=== PATIENT | female | born 1995 | race Caucasian/White ===

== ENCOUNTER 2016-04-20 16:26 | Emergency (ER) | payer OTHER ==
[~2016-04-20] VITALS: Ht 152.4 cm; Wt 67.0 kg
[2016-04-20 16:38] VITALS: TEMP 36.8; Ht 152.4 cm; Wt 67.0 kg
[2016-04-20] MEDS ORDERED: INSDGI SC ×2 (17:33)
[2016-04-20] MEDS ORDERED: NAPR1TAB9 PO (17:33)
[2016-04-20] MEDS ORDERED: NVLG SQ ×2 (17:33)
[2016-04-20] MEDS ORDERED: ZCR40 PO (17:33)
[2016-04-20] MEDS ORDERED: OPTIRAY 320 IV PRN (18:00)
--- NOTE | 2016-04-20 18:21 | DIAGNOSTIC IMAGING REPORT ---
SOFT TISSUE NECK CT WITH CONTRAST HISTORY: swollen tonsil, difficulty swallowing TECHNIQUE: Multiaxial CT images of the neck were performed following the use of intravenous contrast. COMPARISON STUDY: None. FINDINGS: The visualized brain parenchyma and orbits are unremarkable. The major salivary glands enhance symmetrically. Prevertebral soft tissues and the epiglottis are normal in thickness. The thyroid gland enhances normally. The major cervical vessels are patent. The visualized lungs are clear. No suspicious lytic or blastic osseous lesions. Paranasal sinuses and mastoid air cells are clear. No masses. No loculated fluid collections to suggest an abscess. There are enlarged and enhancing adenoid tonsils and palatine tonsils. There is associated mild upper cervical lymphadenopathy. Dominant right cervical lymph node measures 1.6 cm. There is also an enlarged right lateral pharyngeal lymph node measuring 1 cm. IMPRESSION: 1. Enlarged and enhancing adenoid and palatine tonsils. This is consistent with a tonsillitis. No evidence for a peritonsillar abscess. 2. Mild cervical lymphadenopathy. This is likely reactive. Electronically signed by: Lavell Matthews M.D. 04/20/2016 6:19 PM Dictated Date/Time: 04/20/2016 6:15 PM
--- NOTE | 2016-04-20 18:44 | DIAGNOSTIC IMAGING REPORT ---
CHEST 2 VIEWS ROUTINE HISTORY: cough, fever COMPARISON: None. FINDINGS: The lungs are clear. Cardiac silhouette is normal in size. No pleural effusions. No pneumothorax. IMPRESSION: No acute process. Electronically signed by: Lavell Matthews M.D. 04/20/2016 6:43 PM Dictated Date/Time: 04/20/2016 6:41 PM
[2016-04-20 19:17] LABS: URINE APPEARANCE CLEAR (CLEAR); URINE BILIRUBIN NEG (NEG); URINE COLOR YELLOW; URINE NITRITE NEG (NEG); URINE SPECIFIC GRAVITY > 1.045 (1.000-1.030); UROBILINOGEN NEG (NEG)
[2016-04-20 19:27] LABS: MANUAL MICROSCOPIC REQUIRED? NO; REVIEW REQ? NO
[2016-04-20] MEDS ORDERED: KETOROLAC TROMETHAMINE 30 MG/ML VIAL IV STA (20:02)
[2016-04-20] MEDS ORDERED: SODIUM CHLORIDE 0.9% 1000ML 1,000 ML IV ONE (20:15)
[2016-04-20] MEDS ORDERED: AMOXICILLIN 500 MG/10 ML UDP PO ONE (20:15)
[2016-04-20 21:01] VITALS: BP 138/80; PULSE 101; O2SAT 96
[2016-04-20] MEDS ORDERED: AMXUD2505 PO (21:18)
--- NOTE | 2016-04-21 22:13 | EMERGENCY ROOM VISIT NOTE ---
ED Visit Note First contact with patient: 16:43 Chief Complaint: Sore throat, pneumonia and hyperglycemia. History of Present Illness: Ms. Langford is a 20-year-old white female who ambulates into the ED with complaints of throat pain. Just prior to coming to the emergency department she was seen at [facility] and was diagnosed with pneumonia and hyperglycemia. Additionally she reports a rapid strep screen was performed and was negative and the culture is pending. Laboratory tests were drawn and she had a white blood cell count of 24.1 with 90 % segs but no bandemia or left shift. Her H&H was 4.44 and 13.4 respectively. Her comprehensive medical profile showed normal-appearing electrolytes, glucose was measured at 451 and her outlet phosphatase was elevated. It was also verbally reported that she had an elevated anion gap but that was not found on her testing. Patient reports that she has a 2 day history of throat pain and bilateral ear pressure, productive cough and a decreased appetite. She reports her most severe pain is in her throat. She describes a sharp sensation in her throat predominantly with swallowing. She rates this discomfort 7/10. Her pain is nonradiating. She has not identified any alleviating factors related to the pain. She has not been taken any medications for pain prior to arrival at the hospital. Associated with her pain she reports she's been having bilateral ear pressure, fevers, a mildly productive cough of a whitish sputum and a decreased appetite. She denies she denies skin eruptions, skin color changes, headache, dizziness, lightheadedness, painful talking, drooling, inability to swallow, voice changes , neck pain/stiffness, shortness of breath, wheezing, chest pain, palpitations, orthopnea, dependent edema, nausea, vomiting, diarrhea, constipation, back/ flank pain. Additionally she does report that over the last 2 days she has been having a spiking pattern to her blood sugars but she has been able to control her sugars with initial insulin. She also reports that she checks her ketone levels and they have also showed a spiking pattering similar to her blood sugars in her insulin doses. Review of Systems: As noted above in history of present illness. All body systems were reviewed and found to be negative as noted above. Past Medical History: Type 1 diabetes, bronchitis, pneumonia and status post wisdom teeth extraction. Current Medications: Medications Dose Route/Sig Max Daily Dose Days Date Category Dose Instructions Lantus (Insulin Glargine) 100 Unit/Ml Inj 4 Units SC QPM 04/20/16 Reported Lantus (Insulin Glargine) 100 Unit/Ml Inj 24 Units SC QAM 04/20/16 Reported Aleve (Naproxen) 220 Mg Tab 440 Mg PO DAILY PRN 04/20/16 Reported Simvastatin 40 Mg Tab 40 Mg PO HS 04/20/16 Reported Novolog (Insulin Aspart) 100 Units/Ml Inj Units SQ UD 04/20/16 Reported Novolog (Insulin Aspart) 100 Units/Ml Inj Units SQ QAM 04/20/16 Reported 1 UNITS PER 6 CARBS QAM Allergies to Medications: Vicodin, general anesthetic. Social History: Patient is not employed, she is University student; she feels safe in her home environment; she denies tobacco use and admits to alcohol use. Physical Examination: Vital Signs: Date Time Temp Pulse Resp B/P Pulse Ox O2 Delivery O2 Flow Rate FiO2 04/20/16 21:01 101 138/80 96 Room Air 04/20/16 18:47 107 20 127/88 96 04/20/16 16:38 36.8 102 18 143/72 97 Room Air GENERAL: 20-year-old female in mild distress due to pain, nontoxic-appearing, afebrile and hemodynamically stable. NEUROLOGICAL: Awake, alert and oriented to person, place and time. Answering questions appropriately and following commands. Normal gait. Good hand eye coordination. No focal motor sensory deficits. SKIN: Warm, dry and pink. No soft tissue eruptions or trauma noted. HEENT: Atraumatic and normocephalic. No erythema or tenderness over the frontal or maxillary sinuses. No external ear tenderness. Auditory canals are pink and patent. Tympanic membranes are minimally bulging but is not erythematous. PERRLA. Sclera white and conjunctiva pink without drainage. No drainage from naris, but audible congestion. Oral cavity moist and pink. No trismus. Uvula is midline and no abscesses are seen. Pharynx is moderately erythematous and edematous; tonsils are hypertrophied but I was not able to visualize any exudative material. Speech normal and clear. Bilateral superior anterior chain cervical lymphadenopathy. Trachea midline. No jugular venous distention. No laryngeal tenderness. BACK: No tenderness over the bony cervical and thoracic spine. No nuchal rigidity. Full range of motion of the cervical spine. No CVA tenderness. THORAX: Lungs sounds are clear to auscultation and equal bilaterally with symmetrical chest wall. No wheezing, rales or rhonchi. No increased respiratory effort or rate. HEART: Tachycardic rate and rhythm. No gallops, rubs or murmurs are appreciated. ABDOMEN: Obese, soft and nontender. Positive bowel sounds in all quadrants. No guarding, rigidity or organomegaly. EXTREMITIES: Moves all extremities well on command and with purpose. All distal neurovascular statuses are intact and equal bilaterally. ED Course: Patient is assessed as noted above. Laboratory Testing: Test 04/20/16 18:00 04/20/16 18:02 04/20/16 20:05 Range/Units Urine Color YELLOW Urine Appearance CLEAR CLEAR Urine pH 6.0 4.5-7.5 Urine Specific [place] > 1.045 1.000-1.030 Urine Protein NEG NEG Urine Glucose (UA) 3+ NEG Urine Ketones 2+ NEG Urine Occult Blood NEG NEG Urine Nitrite NEG NEG Urine Bilirubin NEG NEG Urine Urobilinogen NEG NEG Urine Leukocyte Esterase NEG NEG Monoscreen NEG NEG Bedside Glucose 175 70-90 mg/dl Soft Tissue Neck Contrast CT: Was reviewed by myself and read by the radiologist showing enlarged and enhanced adenoids and tonsils consistent with acute tonsillitis but no abscesses. Mild cervical chain lymphadenopathy. Chest X-Rays: Were read by myself and the radiologist showing no acute infiltrates, effusions or pneumothorax. Normal heart silhouette and bony anatomy. Patient was hydrated with normal saline and received 30 mg of Toradol IV for pain. Additionally she received 500 mg of amoxicillin suspension for antibiotic coverage. Patient was reassessed multiple times during her stay in the emergency department. Patient did report that she was told that she should be brought into the hospital for observation/admission. On my last evaluation she reports she was feeling much better and did not feel she needed to come into the hospital. Patient was educated about tonight's findings and instructed on her treatment plan; she verbalizes understanding and agreement with this plan. Clinical Impression: Acute tonsillitis. Hyperglycemia. Decision-Making: Initially my differential diagnosis I considered tonsillitis, streptococcal pharyngitis, viral pharyngitis, mononucleosis, tonsillar abscess and other causes. Disposition: Patient discharged home in stable condition accompanied by her sister; prior to departure she was reassessed once again subjectively reported she was feeling much better. She rated her overall discomfort 4/10. Plan: Patient was prescribed amoxicillin suspension 500 mg 3 times a day for 10 days. Patient was encouraged to alternate ibuprofen and acetaminophen as needed for pain and/or fevers. Patient was encouraged to stay well-hydrated with increased clear fluids. Additionally was recommended that she has a liquid a mechanical soft diet until resolution of throat discomfort. Patient was encouraged to monitor her blood sugars well for the next few days and adjust her insulin doses as needed. Patient was encouraged to follow-up at [facility] tomorrow for recheck. Patient was encouraged return ED for worsening/uncontrolled pain, worsening/ uncontrolled fevers, inability to swallow, painful talking, drooling, wheezing/ shortness of breath, coughing up blood or any new/concerning symptoms.
== END 2016-04-20 21:33 | disposition home or self-care (01) ==
LOC: C.EDB 16:29 → C.EDD 21:33
DX: J03.90 Acute tonsillitis, unspecified (principal); E10.65 Type 1 diabetes mellitus with hyperglycemia